=== PATIENT | male | born 1965 | race African-American/Black ===

== ENCOUNTER 2017-06-10 21:46 | Emergency (ER) | payer MEDICAID, OTHER ==
[~2017-06-10] VITALS: Ht 180.3 cm; Wt 163.3 kg
[2017-06-10] MEDS ORDERED: COUMADIN1 MG ORAL (21:47)
--- NOTE | 2017-06-10 21:50 | Emergency Room Report ---
History of Present Illness General Chief Complaint: Eye Problems Source: Patient Present Illness HPI This is a 52-year-old male withan open past medical history. He presents with chief complaint of eye pain. He was outside trimming the burning maharaj and part of the [place] into his eyes. Described as severe pain burning sensation. Tearing rated 10 out of 10. He try to irrigate it but not any better. Occurred just prior to arrival. Nothing made it better. Nothing made it worse. Denies any other complaint. Allergies: Coded Allergies: No Known Allergies (Verified Allergy, Unknown, 02/16/05) Patient History Past Medical History: see triage record, old chart reviewed Past Surgical History: other Pertinent Family History: none Social History: Denies: smoking Immunizations: other Reviewed Nursing Documentation: PMH: Agreed; PSxH: Agreed Review of Systems Eye: Reports: eye pain; Denies: blurred vision ENT: Denies: ear pain, nose congestion, throat swelling Respiratory: Denies: cough, shortness of breath Cardiovascular: Denies: chest pain, palpitations Gastrointestinal: Denies: abdominal pain, diarrhea, nausea, vomiting Musculoskeletal: Denies: back pain, joint pain Skin: Denies: rash Neurological: Denies: headache, numbness Endocrine: Denies: increased thirst, increased urine Hematologic/Lymphatic: Denies: easy bruising All Other Systems: negative except mentioned in HPI Physical Exam Sp02 EP Interpretation: reviewed, normal General Appearance: well appearing, no apparent distress, alert Head: normocephalic, atraumatic Eyes: bilateral eye PERRL, bilateral eye EOMI, bilateral eye other - Conjunctiva injected ENT: hearing grossly normal, normal pharynx Neck: full range of motion, supple, no meningismus Respiratory: chest non-tender, lungs clear, normal breath sounds Cardiovascular #1: regular rate, rhythm, no murmur Gastrointestinal: normal bowel sounds, non tender, no mass, no organomegaly, no bruit, non-distended Musculoskeletal: back normal, gait/station normal, normal range of motion Psychiatric: mood/affect normal Skin: warm/dry Medical Decision Making Diagnostic Impression: Primary Impression: Chemical conjunctivitis of both eyes ER Course Patient with eye pain secondary to chemical reaction from sat of the plane. No evidence of foreign body or globe rupture. No evidence of infection or abrasion. We'll discharge home after irrigation. Status: improved Disposition: HOME, SELF-CARE Condition: Stable Patient Instructions: Chemical Conjunctivitis, [id number] Additional Instructions: You can wash your eyes with baby shampoo. Follow-up with your doctor in 23 days of not better. Return if worse. SONJA WASHINGTON M.D. Jun 10, 2017 21:50
[2017-06-10 22:00] VITALS: BP 183/117
[2017-06-10 22:25] VITALS: BP 183/117
== END 2017-06-10 22:25 | disposition home or self-care (01) ==
LOC: EDBD 21:46 → EMR 22:23
DX: H10.213 Acute toxic conjunctivitis, bilateral (principal)
CPT/HCPCS: 99282